=== PATIENT | female | born 1990 | race Two or more races ===

== ENCOUNTER 2017-05-26 15:20 | Observation (INO) | payer MEDICAID ==
[~2017-05-26] VITALS: Ht 167.6 cm; Wt 72.6 kg
[2017-05-26] MEDS ORDERED: LACTATED RINGER'S 1,000 ML IV ONE (16:32)
[2017-05-26] MEDS ORDERED: PREN-96 PO (16:38)
== END 2017-05-26 18:05 | disposition home or self-care (01) | DRG 566 ==
LOC: LDRP 15:20
PROVIDERS: ADMIT Obstetrics & Gynecology; ATTEND Obstetrics & Gynecology
DX: O26.893 Other specified pregnancy related conditions, third trimester (principal); G43.909 Migraine, unspecified, not intractable, without status migrainosus; O21.2 Late vomiting of pregnancy; Z3A.35 35 weeks gestation of pregnancy
CPT/HCPCS: 59025; 81002; G0378; 96365; 96366

== ENCOUNTER 2017-07-12 05:11 | Emergency (ER) | payer MEDICAID ==
[~2017-07-12] VITALS: Ht 165.1 cm; Wt 75.7 kg
[~2017-07-12 05:11] MED LIST: PREN-96 PO
[2017-07-12 05:30] VITALS: BP 106/74
== END 2017-07-12 07:18 | disposition left against medical advice (07) ==
LOC: ER 05:11
DX: R11.2 Nausea with vomiting, unspecified (principal); R19.7 Diarrhea, unspecified; Z53.21 Procedure and treatment not carried out due to patient leaving prior to being seen by health care provider

== ENCOUNTER 2017-12-06 17:26 | Emergency (ER) | payer MEDICAID ==
[~2017-12-06] VITALS: Ht 165.1 cm; Wt 74.8 kg
[2017-12-06 17:55] VITALS: BP 122/82
[2017-12-06] MEDS ORDERED: methylPREDNISolone SOD SUCC 125 MG/2 ML VL IV ONE (20:15)
[2017-12-06] MEDS ORDERED: diphenhdrAMINE HCL 50 MG/1 ML VL IV ONE (20:15)
[2017-12-06] MEDS ORDERED: FAMOTIDINE (10MG/ML) 2ML VL IV ONE ×2 (20:15→20:25)
[2017-12-06] MEDS ORDERED: methylPREDNISolone SOD SUCC 125 MG/2 ML VL ONE (20:25)
[2017-12-06] MEDS ORDERED: diphenhdrAMINE HCL 50 MG/1 ML VL ONE (20:26)
== END 2017-12-06 22:06 | disposition home or self-care (01) ==
LOC: ER 17:26
DX: T78.40XA Allergy, unspecified, initial encounter (principal)
CPT/HCPCS: 96374; 96375; 99284; J1200; J2930; J3490